=== PATIENT | male | born 1955 | race Caucasian/White ===

== ENCOUNTER 2016-08-24 10:23 | Inpatient (IN) | payer OTHER ==
[~2016-08-24] VITALS: Ht 185.4 cm; Wt 86.2 kg
--- NOTE | 2016-08-24 10:25 | NUR ---
PT HERE WITH AFIB STATES HE HAS HX OF SAME. PT STATES THIS BEGAN OVER NIGHT AND THINKS HE WAS IN A-FLUTTER FOR THE PAST FEW DAYS. PT SENT IN BY DR. ALVAREZ. PT DENIES CHEST PAIN
--- NOTE | 2016-08-24 10:27 | NUR ---
HR 144 A-FIB
--- NOTE | 2016-08-24 10:40 | NUR ---
SVT ON MONITOR,
--- NOTE | 2016-08-24 10:41 | NUR ---
ALERT, DENIES CHEST PAIN, DIZZINESS OR SOB.
[2016-08-24] MEDS ORDERED: ASPIRIN81 M4 PO (10:56)
--- NOTE | 2016-08-24 11:02 | ED CARDIAC/CP/PALPITATIONS ---
History of Present Illness General Chief Complaint: General Adult Stated Complaint: RAPID HEART RATE Vital Signs & Intake/Output Vital Signs & Intake/Output Vital Signs Date Time Temp Pulse Resp B/P Pulse O2 O2 Flow FiO2 Ox Delivery Rate 08/24 1120 140 114/77 08/24 1025 97.3 145 16 121/85 98 Room Air Allergies Coded Allergies: No Known Allergies (08/24/16) Reconcile Medications Aspirin (Aspirin*) 81 MG TAB.CHEW 1 TAB PO DAILY HEART HEALTH (Reported) Triage Note: PT HERE WITH AFIB STATES HE HAS HX OF SAME. PT STATES THIS BEGAN OVER NIGHT AND THINKS HE WAS IN A-FLUTTER FOR THE PAST FEW DAYS. PT SENT IN BY DR. ALVAREZ. PT DENIES CHEST PAIN Past History Travel History Traveled to [place] past 21 day No Medical History Cardiovascular: AFIB Influenza Vaccine: 03/05/10 Psychosocial History Who do you live with Spouse Services at Home None What is your primary language Portuguese Tobacco Use: Never used ETOH Use: denies use Illicit Drug Use: denies illicit drug use Progress Plan of Care: Orders Procedure Date/time Status PARTIAL THROMBOPLASTIN TIME 08/24 1043 Complete PROTHROMBIN TIME 08/24 1043 Complete TROPONIN LEVEL 08/24 1042 Active MAGNESIUM 08/24 1042 Active COMPREHENSIVE METABOLIC PANEL 08/24 1042 Active CHOLESTEROL 08/24 1042 Active CBC WITHOUT DIFFERENTIAL 08/24 1042 Complete EKG 08/24 1027 Active Laboratory Tests 08/24/16 1050: Sodium Pending, Potassium Pending, Chloride Pending, Carbon Dioxide Pending, Anion Gap Pending, BUN Pending, Creatinine Pending, BUN/Creatinine Ratio Pending , Glucose Pending, Calcium Pending, Magnesium Pending, Total Bilirubin Pending, AST Pending, ALT Pending, Alkaline Phosphatase Pending, Troponin I Pending, Total Protein Pending, Albumin Pending, Globulin Pending, Albumin/Globulin Ratio Pending, Cholesterol Pending, PT 13.2 H, INR 1.26 H, APTT 28, CBC w Diff NO MAN DIFF REQ, RBC 4.52 L, MCV 82.0, MCH 26.3 L, RDW 16.1 H, MPV 7.1 L, Gran % 81.9 H, Lymphocytes % 14.0 L, Monocytes % 3.1, Eosinophils % 0.6, Basophils % 0.4, Absolute Granulocytes 8.9 H, Absolute Lymphocytes 1.5, Absolute Monocytes 0.3, Absolute Eosinophils 0.1, Absolute Basophils 0, PUBS MCHC 32.1 L Initial ED EKG: normal intervals, no ST T wave changes, SUPRAVENTRICULAR TACHYCARDIA Departure Departure Condition: Stable Referrals: TORI LEVIN,SANDY NICK (PCP/Family) Departure Forms: Customer Survey General Discharge Information
[2016-08-24 11:12] LABS: ABSOLUTE BASOPHIL COUNT 0 /CUMM (0.0-0.2); ABSOLUTE EOSINOPHIL COUNT 0.1 /CUMM (0.0-0.7); ABSOLUTE GRANULOCYTE CT 8.9 /CUMM (1.4-6.5); ABSOLUTE LYMPH COUNT 1.5 /CUMM (1.2-3.4); ABSOLUTE MONOCYTE COUNT 0.3 /CUMM (0.10-0.60); BASOPHIL % 0.4 % (0.0-2.0); EOSINOPHIL % 0.6 % (0-5); GRANULOCYTE % 81.9 % (42.2-75.2); MEAN CORPUSCULAR HGB 26.3 PG (27.0-31.0); MEAN CORPUSCULAR HGB CONC 32.1 G/DL (33.0-37.0); MEAN PLATELET VOLUME 7.1 FL (7.4-10.4); PLATELET COUNT 398 /CUMM (130-400); RBC DISTRIBUTION WIDTH 16.1 % (11.5-14.5); RED BLOOD CELL CT 4.52 /CUMM (4.70-6.10); WHITE BLOOD CELL COUNT 10.9 /CUMM (4.8-10.8)
[2016-08-24 11:21] LABS: PT 13.2 SEC (9.4-12.5); PTT 28 SEC (25-37)
--- NOTE | 2016-08-24 11:21 | RADIOLOGY REPORT ---
EXAMINATION: XR PORTABLE CHEST CLINICAL INFORMATION: Atrial fibrillation. COMPARISON: None TECHNIQUE: Portable AP view of the chest was obtained. FINDINGS: Cardiomediastinal silhouette is within normal limits. Small left-sided pleural effusion with possible associated atelectasis. Right lung is clear. Visualized bony thorax is intact. IMPRESSION: Small left pleural effusion with associated linear atelectasis.
--- NOTE | 2016-08-24 11:46 | NUR ---
NO CHANGE IN RHYTHM AFTER ADENOSINE. PT DOES NOT WANT ANY MORE MEDICATION, WANTS TO SEE A CARDILOGIST. DR. SERNA AWARE. DR. ALVAREZ CALLED.
--- NOTE | 2016-08-24 12:19 | NUR ---
DR. MUNOZ HERE TO EVALUATE.
--- NOTE | 2016-08-24 12:55 | NUR ---
CALL FOR A TRAY
--- NOTE | 2016-08-24 13:12 | ED CARDIAC/CP/PALPITATIONS ---
History of Present Illness General Chief Complaint: General Adult Stated Complaint: RAPID HEART RATE Source: patient, family, old records Exam Limitations: no limitations Vital Signs & Intake/Output Vital Signs & Intake/Output Vital Signs Date Time Temp Pulse Resp B/P Pulse O2 O2 Flow FiO2 Ox Delivery Rate 08/24 1311 97.1 145 20 160/73 97 Room Air 08/24 1145 144 18 114/78 99 Room Air 08/24 1120 140 114/77 08/24 1025 97.3 145 16 121/85 98 Room Air Allergies Coded Allergies: No Known Allergies (08/24/16) Reconcile Medications Aspirin (Aspirin*) 81 MG TAB.CHEW 1 TAB PO DAILY HEART HEALTH (Reported) Core Measure Meds Pre-Hospital aspirin Triage Note: PT HERE WITH AFIB STATES HE HAS HX OF SAME. PT STATES THIS BEGAN OVER NIGHT AND THINKS HE WAS IN A-FLUTTER FOR THE PAST FEW DAYS. PT SENT IN BY DR. ALVAREZ. PT DENIES CHEST PAIN Triage Nurses Notes Reviewed? yes Onset: 2 days Duration: day(s):, constant, continues in ED, getting worse Timing: recent history Quality/Severity: moderate Location: central Radiation: no radiation Activities at Onset: rest Prior Chest Pain/Card Workup: echocardiography, stress test Modifying Factors: Worsens With: exercise. Nitro Today/Relief: no nitro taken today Aspirin Today: 81 mg x 1, provided at home Associated Symptoms: weakness HPI: 2 days prior to admission patient complains of rapid heart rate worse with exertion progressive. He denies fever chills nausea vomiting diarrhea abdominal pain shortness of breath headache dysuria rash bleeding. Past History Travel History Traveled to [place] past 21 day No Medical History Any Pertinent Medical History? see below for history Cardiovascular: AFIB Influenza Vaccine: 03/05/10 Surgical History Surgical History: non-contributory Psychosocial History Who do you live with Spouse Services at Home None What is your primary language Tuvaluan Tobacco Use: Never used ETOH Use: denies use Illicit Drug Use: denies illicit drug use Family History Hx Contributory? No Review of Systems Review of Systems Constitutional: Reports: no symptoms. EENTM: Reports: no symptoms. Respiratory: Reports: no symptoms. Cardiovascular: Reports: see HPI, palpitations. GI: Reports: no symptoms. Genitourinary: Reports: no symptoms. Musculoskeletal: Reports: no symptoms. Skin: Reports: no symptoms. Neurological/Psychological: Reports: no symptoms. Hematologic/Endocrine: Reports: no symptoms. Immunologic/Allergic: Reports: no symptoms. All Other Systems: Reviewed and Negative Physical Exam Physical Exam General Appearance: well developed/nourished, alert, awake, anxious, mild distress Head: atraumatic, normal appearance Eyes: Bilateral: normal appearance, PERRL, EOMI. Ears, Nose, Throat: normal pharynx, normal ENT inspection, hearing grossly normal Neck: normal inspection, supple, full range of motion Respiratory: normal breath sounds, chest non-tender, no respiratory distress, quiet respiration, lungs clear Cardiovascular: normal peripheral pulses, tachycardia, norml femoral pulses equa Peripheral Pulses: 4+ carotid (R), 4+ carotid (L) Gastrointestinal: normal bowel sounds, soft, non-tender, no organomegaly Back: normal inspection, normal range of motion Extremities: normal inspection, normal capillary refill, normal range of motion, no edema Neurologic/Psych: no motor/sensory deficits, awake, alert, oriented x 3, normal gait, normal mood/affect Reflexes: 2+: bicep (R), bicep (L). Skin: intact, normal color, warm/dry Lymphatic: no anterior cervical makayla Core Measures ACS in differential dx? Yes ASA ordered for poss ACS? taken at home Severe Sepsis Present: No Septic Shock Present: No Progress Differential Diagnosis: AMI, atrial fibrillation, hyperkalemia, hyperthyroid Plan of Care: Orders Procedure Date/time Status Regular Diet 08/24 L Active Patient Data 08/24 1311 Active OXYGEN SETUP (GEN) 08/24 1247 Active Saline Lock 08/24 1247 Active Admit to inpatient 08/24 1247 Active Vital Signs 08/24 1247 Active Activity/Ambulation 08/24 1247 Active Code Status 08/24 1247 Active PARTIAL THROMBOPLASTIN TIME 08/24 1043 Complete PROTHROMBIN TIME 08/24 1043 Complete TROPONIN LEVEL 08/24 1042 Complete MAGNESIUM 08/24 1042 Complete COMPREHENSIVE METABOLIC PANEL 08/24 1042 Complete CHOLESTEROL 08/24 1042 Complete CBC WITHOUT DIFFERENTIAL 08/24 1042 Complete EKG 08/24 1027 Active Current Medications Sig/Shante Start time Last Medication Dose Stop Time Status Admin Heparin Sodium 25,000 UNIT Q24H 08/24 1300 UNVr (Porcine) (Heparin) Sodium Chloride 500 ML Laboratory Tests 08/24/16 1050: Anion Gap 8, Estimated GFR > 60, BUN/Creatinine Ratio 30.0 H, Glucose 89, Calcium 8.6, Magnesium 1.7, Total Bilirubin 0.8, AST 17, ALT 34, Alkaline Phosphatase 60, Troponin I < 0.01, Total Protein 6.2 L, Albumin 2.9 L, Globulin 3.3, Albumin/Globulin Ratio 0.9 L, Cholesterol 138, PT 13.2 H, INR 1.26 H, APTT 28, CBC w Diff NO MAN DIFF REQ, RBC 4.52 L, MCV 82.0, MCH 26.3 L , RDW 16.1 H, MPV 7.1 L, Gran % 81.9 H, Lymphocytes % 14.0 L, Monocytes % 3.1, Eosinophils % 0.6, Basophils % 0.4, Absolute Granulocytes 8.9 H, Absolute Lymphocytes 1.5, Absolute Monocytes 0.3, Absolute Eosinophils 0.1, Absolute Basophils 0, PUBS MCHC 32.1 L Diagnostic Imaging: Viewed by Me: Radiology Read. Discussed w/RAD: Radiology Read. CXR Impression: no acute abnormality Initial ED EKG: normal axis, normal intervals, normal p-waves, normal QRS complex, rate (tachycardia) Prior EKG: changed Rhythm Strip: atrial fibrillation Comments: Initial EKG demonstrated SVT adenosine 6 mg administered with decrease in heart rate to mid 90s with return to 120s. 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 Rhythm strip now demonstrating atrial fibrillation flutter 90-120. Departure Departure Disposition: STILL A PATIENT Condition: Stable Clinical Impression Primary Impression: Atrial fibrillation with rapid ventricular response Referrals: TORI LEVIN,SANDY NICK (PCP/Family) Departure Forms: Customer Survey General Discharge Information Admission Note Spoke With: ALEXANDER LEVIN,Lyudmila ADKINS Documentation of Exam: Documentation of any treatments & extenuating circumstances including Concerns Regarding Discharge (functional status, medication knowledge or non-compliance, living conditions, etc.) that warrant an admission rather than observation: Cardiac monitoring serial lab exam serial EKG IV heparin IV Cardizem medication adjustment cardiology evaluation continuing care discharge planning Critical Care Note Critical Care Note Critical Care Time: 30-74 min (35)
--- NOTE | 2016-08-24 13:12 | History & Physical ---
RICKIE IVORY MD 08/24/16 1312: General Information and HPI Source of Information: patient, old records Exam Limitations: no limitations History of Present Illness: Patient is a 54-year-old male with significant past medical history of Lone atrial fibrillation ( since 2008), cardioverted twice into sinus rhythm,was on only on Aspirin (81mg) sent to emergency department by Dr. Glez due to AF. According to the patient, he started feeling tachycardia since last 48 -72 hours ,rate was not high.yesterday night he thinks is changed into atrial flutter. In the morning, when he checked on the monitor, it was more than 150. He was also feeling shortness of breath. He talked to Dr. Alvarez and he suggested him to come to [facility]. He claims that he was in normal sinus rhythm,since 2010 and was on baby aspirin. He denies chest pain, headache, dizziness, nausea, vomiting, recent infection, recent examination, anxiety. Other past medical history - right inguinal hernia repaired, umbilical hernia repairs, left knee arthroscopy, endovenous laser ablation of varicose vein. 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 Allergies/Medications Allergies: Coded Allergies: No Known Allergies (08/24/16) Home Med list Apixaban (Eliquis) 5 MG TABLET 5 MG PO BID ATRIAL FIBRILLATION Past History Travel History Traveled to [place] past 21 day No Medical History Cardiovascular: AFIB Influenza Vaccine: 03/05/10 Surgical History Surgical History: arthroscopy, hernia repair-inguinal, hernia repair-umbilical Past Family/Social History Psychosocial History Services at Home: None ETOH Use: denies use Illicit Drug Use: denies illicit drug use Functional Ability ADLs Independent: dressing, eating, toileting, bathing. Ambulation: independent Review of Systems Review of Systems Constitutional: Denies: no symptoms, chills, diaphoresis, fever, malaise, weakness, unexplained weight loss. EENTM: Denies: no symptoms. Cardiovascular: Denies: no symptoms, chest pain, edema, orthopena, palpitations, peripheral edema, syncope. Respiratory: Reports: short of breath. Denies: no symptoms, cough, hemoptysis, orthopnea, sputum production, stridor, wheezing. GI: Denies: no symptoms. Genitourinary: Denies: no symptoms. Musculoskeletal: Denies: no symptoms. Neurological/Psychological: Denies: no symptoms. Hematologic/Endocrine: Denies: no symptoms. Immunologic/Allergic: Denies: no symptoms. Exam & Diagnostic Data Last 24 Hrs of Vital Signs/I&O Vital Signs Date Time Temp Pulse Resp B/P Pulse O2 O2 Flow FiO2 Ox Delivery Rate 08/24 1426 98.9 146 18 90/70 100 08/24 1311 97.1 145 20 160/73 97 Room Air 08/24 1145 144 18 114/78 99 Room Air 08/24 1120 140 114/77 08/24 1025 97.3 145 16 121/85 98 Room Air Intake & Output 08/24 1600 08/24 0800 08/24 0000 Intake Total 510 Output Total Balance 510 Intake, IV 510 Patient 86.183 kg Weight Physical Exam General Appearance Alert, Oriented X3, Cooperative, No Acute Distress Skin No Rashes, No Breakdown Cardiovascular irregularly irregular with murmur Lungs Clear to Auscultation, Normal Air Movement Abdomen Soft, No Tenderness Neurological Normal Gait, Normal Speech Extremities No Clubbing, No Cyanosis, nonpitting edema using compression stockings Vascular Normal Pulses, Pulses Symmetrical Last 24 Hrs of Labs/Ray: Laboratory Tests 08/24/16 1050: Anion Gap 8, Estimated GFR > 60, BUN/Creatinine Ratio 30.0 H, Glucose 89, Calcium 8.6, Magnesium 1.7, Total Bilirubin 0.8, AST 17, ALT 34, Alkaline Phosphatase 60, Troponin I < 0.01, Total Protein 6.2 L, Albumin 2.9 L, Globulin 3.3, Albumin/Globulin Ratio 0.9 L, Cholesterol 138, PT 13.2 H, INR 1.26 H, APTT 28, CBC w Diff NO MAN DIFF REQ, RBC 4.52 L, MCV 82.0, MCH 26.3 L , RDW 16.1 H, MPV 7.1 L, Gran % 81.9 H, Lymphocytes % 14.0 L, Monocytes % 3.1, Eosinophils % 0.6, Basophils % 0.4, Absolute Granulocytes 8.9 H, Absolute Lymphocytes 1.5, Absolute Monocytes 0.3, Absolute Eosinophils 0.1, Absolute Basophils 0, PUBS MCHC 32.1 L Diagnostic Data EKG Results Atrial flutter, but does 2:[address]-T wave changes. CXR Results Small left pleural effusion with associated linear atelectasis. Assessment/Plan Assessment: Patient is a 54-year-old male with significant past medical history of Lone atrial fibrillation ( since 2008), cardioverted twice into sinus rhythm,was on only on Aspirin (81mg) sent to emergency department by Dr. Glez due to AF. Vital signs at the time of admission-temperature 97.3, pulse 145, respiratory rate 16, blood pressure 141/85, SPO2 98% on room air. Pertinent labs-Hb-11.9,Na -135, PT/INR-13.2/1.26 Chest x-ray shows-small left-sided pleural effusion with associated linear atelectasis. Plan - Paroxysmal atrial fibrillation - Patient has history of lone atrial fibrillation since 2008. He had electrocardioversion followed by normal sinus rhythm. Since 2010, he has not had any episodes. Echocardiogram in the past showed borderline LVH,LVEF >60%(2010). He was on baby aspirin. Since 08/22/2016, he started having new episode of palpitation, which is persistent with associated shortness of breath. He was admitted in the [facility] ED, and was given IV adenosine 6mg and 12mg. Af is not converted, so it was decided that we will start patient on IV heparin drip and Cardizem drip. We will keep him nothing by mouth for possible electrical cardioversion on 08/24/2016. * We will monitor in the telemetry floor * Heparin drip as per protocol * Cardizem drip 125mg/100cc at 5 mL per hour till tmr. * Keep nothing by mouth after midnight for possible JOSE/electrical cardioversion on 08/24/2016 * We will follow echocardiogram to rule out any clots * Strict intake output charting * Vitals every shift As Ranked By This Provider Problem List: 1. Atrial fibrillation with rapid ventricular response Core Measures/Miscellaneous Acute Coronary Syndrome ACS Diagnosis: No Cerebrovascular Accident CVA/TIA Diagnosis: No Congestive Heart Failure CHF Diagnosis: No Venous Thromboembolism VTE Risk Factors: Age > 40, Varicose veins No [facility] VTE prophylaxis d/t: No contraindications No VTE Pharm Prophylaxis d/t: No contraindications VTE Diagnosis: No VTE Type: NONE VTE Confirmed by (Test): NONE Severe Sepsis Severe Sepsis Present: No Septic Shock Septic Shock Present: No Miscellaneous Documentation Attending Case Discussed With: KIMANI ALVAREZ MD Primary Care Physician: SANDY VALLE MD Patient sees these Specialists Dr alvarez Level of Patient Care: Telemetry JOYCELYN ROJAS 08/24/16 1612: Resident Review Statement Other Findings: 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 Alvarez. He states that on monday he noticed his HR was irregular, which was associated with some dyspnea and fatigue. He is on low dose ASA as his [id number]- VASc Score is 0. He previously had been treated with amiodarone, dronedarone, and propafenone however he had not tolerated them and had multiple episodes of palpitations. He states that he has not had an feeling of palpitations or fibrillation prior to this episode for many years. For his prior episodes of atrial fibrillation, he was electrically cardioverted twice. At the time of the interview he states he has no acute complaints including dyspnea or palpitations. He denies chest pain, jaw pain, lightheadedness or dizziness. He denies any change in his vision or hearing. He denies any abdominal pain, n/v or change in his bowel habits. He denies any recent infection. He denies alcohol use prior to the tachycardia or recently. He denies any trauma or emotional shock. He states he has had multiple previous echocardiograms, most recently within the last year with at Dr. Quick [facility] that showed no structural abnormalities. Previous echo in 2010 showed EF of 60% with some mild LVH. In the ED, vitals on admission revealed T 97.3, HR 145, RR 16, BP 121/85, saturating 98% on RA. EKG on admission showed a tachycardic tracing and appeared to be SVT, however after admininstration of 6mg of adenosine, his rate went down to the 90s, and an underlying rhythm of atrial fibrillation vs flutter was noted by the ED staff. Unfortunately, this was not recorded on telemetry monitoring/rhythm strip. Physical exam was benign except for CVS exam: tachycardic on austultation with a 2/6 systolic flow murmur in all 4 areas w/o radiation. Lungs were CTA BL and no JVD or LE edema was noted. He is currently on a cardizem drip @5mg/hour and is being anticoagulated with IV heparin. Problem list/Assessment and plan Atrial fibrillation with RVR * -admit to telemetry for cardiac monitoring and continue IV cardizem drip. * -Continue heparin per general AC pathway with a goal PTT 2x the upper limit of normal * -Guiac all stools * -1st set of trop -ve, we will get 1 more at 5pm as well as an EKG to rule him out * -We will also get a TSH level to evaluate for hyperthyroidism. * -Cardio consult placed and appreciated. * -TTE pending. * -If he converts on his own with cardizem, please get a confirmatory EKG * -If he does not, plan for JOSE with possible cardioversion tomorrow morning. NPO @ midnight order in. * -It should be noted that he was previous tried on amiodarone, dronedarone and propafenone. He didnt tolerate the propafenone, but ? might be able to tolerate another class 1c antiarrhythmic medication such as flecainide or moricizine. 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
--- NOTE | 2016-08-24 13:29 | NUR ---
CARDIZEM DRIP STARTED AT 5 MG IV.
--- NOTE | 2016-08-24 13:50 | NUR ---
PT HAS BED ASSIGNMENT 174-2. RN NOTIFIED.
--- NOTE | 2016-08-24 13:53 | NUR ---
HEPARIN DRIP STARTED AT 20.6 UNITS PER HOUR (.45 NS WITH 25,000 UNITS HEPARIN) AFTER 4,000 UNIT BOLUS.
--- NOTE | 2016-08-24 14:10 | Cons- Cardiology ---
General Information and HPI Consulting Request Date of Consult: 08/24/16 Requested By: KIMANI ALVAREZ MD Reason for Consult: Atrial fibrillation / flutter Source of Information: patient, family History of Present Illness: 60 year old male with history of PAF and 2 prior cardioversions who has maintained NSR with the exception of a few episodes of non sustained palpitations, for several years. Here today in the ER after being sent in by Dr Alvarez for palpitations that have been present for 36 - 48 hours. In the ER the patient was noted to be in atrial fluitter. NO other CV symptoms Allergies/Medications Allergies: Coded Allergies: No Known Allergies (08/24/16) Home Med List: Aspirin (Aspirin*) 81 MG TAB.CHEW 1 TAB PO DAILY HEART HEALTH (Reported) Current Medications: Current Medications Sig/Shante Start time Last Medication Dose Route Stop Time Status Admin Acetaminophen 650 MG Q6P PRN 08/24 1415 UNVr PO Acetaminophen 1,000 MG Q6P PRN 08/24 1415 UNVr IV Adenosine 6 MG ONCE ONE 08/24 1100 DC 08/24 IV 08/24 1101 1120 Adenosine 0 .STK-MED ONE 08/24 1054 DC IV Adenosine 0 .STK-MED ONE 08/24 1054 DC IV Aspirin 81 MG DAILY 08/25 1000 UNVr PO Diltiazem HCl 0 .STK-MED ONE 08/24 1315 DC IV Diltiazem HCl 125 MG Q24H 08/24 1300 AC 08/24 Sodium Chloride 100 ML IV 1328 Heparin Sodium 0 .STK-MED ONE 08/24 1330 DC (Porcine) .ROUTE Heparin Sodium 4,000 UNIT ONCE ONE 08/24 1300 DC 08/24 (Porcine) IV 08/24 1301 1349 Heparin Sodium 25,000 UNIT Q24H 08/24 1300 AC 08/24 (Porcine) IV 1349 Sodium Chloride 500 ML Oxycodone/ 1 TAB Q6P PRN 08/24 1415 UNVr Acetaminophen PO Past History Travel History Traveled to [place] past 21 day No Medical History Cardiovascular: AFIB Surgical History Surgical History: non-contributory Psychosocial History Services at Home: None ETOH Use: denies use Illicit Drug Use: denies illicit drug use Exam & Diagnostic Data Vital Signs and I&O Vital Signs Date Time Temp Pulse Resp B/P Pulse O2 O2 Flow FiO2 Ox Delivery Rate 08/24 1311 97.1 145 20 160/73 97 Room Air 08/24 1145 144 18 114/78 99 Room Air 08/24 1120 140 114/77 08/24 1025 97.3 145 16 121/85 98 Room Air Intake & Output 08/24 1600 08/24 0800 08/24 0000 08/23 1600 08/23 0800 08/23 0000 Intake Total 10 Output Total Balance 10 Intake, IV 10 Patient 190 lb Weight Physical Exam: General Appearance Alert, Oriented X3, Cooperative, No Acute Distress Skin Normal Cardiovascular irregularly irregular with 1-2/6 systolic murmur Lungs Clear to Auscultation, Normal Air Movement Abdomen Soft, No Tenderness Neurological Normal Extremities No Clubbing, No Cyanosis, nonpitting edema using compression stockings Vascular Normal Pulses, Pulses Symmetrical Labs/Ray Results: Laboratory Tests 08/24 1050 Chemistry Sodium (137 - 145 mmol/L) 135 L Potassium (3.5 - 5.1 mmol/L) 4.7 Chloride (98 - 107 mmol/L) 103 Carbon Dioxide (22 - 30 mmol/L) 25 Anion Gap (5 - 16) 8 BUN (9 - 20 mg/dL) 21 H Creatinine (0.7 - 1.2 mg/dL) 0.7 Estimated GFR (>60 ml/min) > 60 BUN/Creatinine Ratio (7 - 25 %) 30.0 H Glucose (65 - 99 mg/dL) 89 Calcium (8.4 - 10.2 mg/dL) 8.6 Magnesium (1.6 - 2.3 mg/dL) 1.7 Total Bilirubin (0.2 - 1.3 mg/dL) 0.8 AST (17 - 59 U/L) 17 ALT (21 - 72 U/L) 34 Alkaline Phosphatase (< 127 U/L) 60 Troponin I (<0.11 ng/ml) < 0.01 Total Protein (6.3 - 8.2 g/dL) 6.2 L Albumin (3.5 - 5.0 g/dL) 2.9 L Globulin (1.9 - 4.2 gm/dL) 3.3 Albumin/Globulin Ratio (1.1 - 2.2 %) 0.9 L Cholesterol (< 200 MG/DL) 138 Coagulation PT (9.4 - 12.5 SEC) 13.2 H INR (0.90 - 1.17) 1.26 H APTT (25 - 37 SEC) 28 Hematology CBC w Diff NO MAN DIFF REQ WBC (4.8 - 10.8 /CUMM) 10.9 H RBC (4.70 - 6.10 /CUMM) 4.52 L Hgb (14.0 - 18.0 G/DL) 11.9 L Hct (42 - 52 %) 37.0 L MCV (80.0 - 94.0 FL) 82.0 MCH (27.0 - 31.0 PG) 26.3 L RDW (11.5 - 14.5 %) 16.1 H Plt Count (130 - 400 /CUMM) 398 MPV (7.4 - 10.4 FL) 7.1 L Gran % (42.2 - 75.2 %) 81.9 H Lymphocytes % (20.5 - 51.1 %) 14.0 L Monocytes % (1.7 - 9.3 %) 3.1 Eosinophils % (0 - 5 %) 0.6 Basophils % (0.0 - 2.0 %) 0.4 Absolute Granulocytes (1.4 - 6.5 /CUMM) 8.9 H Absolute Lymphocytes (1.2 - 3.4 /CUMM) 1.5 Absolute Monocytes (0.10 - 0.60 /CUMM) 0.3 Absolute Eosinophils (0.0 - 0.7 /CUMM) 0.1 Absolute Basophils (0.0 - 0.2 /CUMM) 0 PUBS MCHC (33.0 - 37.0 G/DL) 32.1 L Diagnostic Data EKG Results Atrial flutter with 2:1 conduction and NSSTTWCs. Assessment/Plan Assessment/Plan Assessment: 1. Atrial fibrillation / flutter of recent onset - By history, the patient has known PAF with no significant sustained episodes but recurrence now which may have started up to 48 hours ago. Sent to the ER by Dr. Alvarez this AM. In the ER found to be in atrial flutter and initially given adenosine. At the moment doing OK but with fluctuating rate between 80-140/ min. Otherwise doing well with no symptoms. Recommendations: - Discussed with the patient, his and Dr Alvarez. - Start IV cardizem at 5 mg / hr with NO bolus for now to optimize rate control. - IV heparin anticoagulation - Full lab evaluation. - Baseline echocardiogram to rule out interval change. - NPO after midnight tonite for possible JOSE / Cardioversion tomorrow if needed. - Final decision about oral medication tomorrow. Whether the patient converts on his own or requires cardioversion, he should be anticoagulated for at least 2 -4 weeks post reversion to NSR. - If her reverts on his own overnight, continue IV meds pending Dr. Quick decision about oral medications in the AM. Consult Acknowledgment - Thank you for your consult request.
--- NOTE | 2016-08-24 14:26 | NUR ---
MANUAL BLOOD PRESSURE AT THIS TIME 90/70
--- NOTE | 2016-08-24 14:48 | NUR ---
DR. CHO AND DR. HIRSCH AWARE OF BP (90/70) NS BOLUS INFUSING.
--- NOTE | 2016-08-24 15:49 | NUR ---
DR. ROJAS NOTIFIED OF PERSISTANT ELEVATED HEART RATE. (138-144) CARDIZEM INCREASED TO 7.5 MG PER HOUR.
--- NOTE | 2016-08-24 16:08 | NUR ---
TO TELEMETRY (ROOM 174) ON [employer] WITH JACK [employer].
[2016-08-24 16:25] VITALS: BP 102/68
[2016-08-24 21:52] LABS: PTT 31 SEC (25-37)
[2016-08-24 23:57] VITALS: BP 90/50
[2016-08-25 04:49] LABS: PTT 47 SEC (25-37)
[2016-08-25 08:15] VITALS: BP 102/62
--- NOTE | 2016-08-25 08:16 | PN- Housestaff ---
Subjective Follow-up For: Lone Atrial fibrillation Complaints: no complaints Tele-Events Since Last Visit: Atrial fibrillation with heart rate between 90-110 Subjective: A she is seen and examined at the bedside. He was not having any active complain. He is planned to go to JOSE and electrical cardioversion at 9 o'clock today. He denies of any chest pain, shortness of breath, dyspnea, blurry vision. Review of Systems Constitutional: Denies: no symptoms. Comments: Patient denies for any active complaints. Objective Last 24 Hrs of Vital Signs/I&O Temp -98.9, P-61, RR-13, BP-102/62, SpO2 -96% Physical Exam General Appearance: Alert, Oriented X3, Cooperative, No Acute Distress Cardiovascular: irregularly irregular with murmur Lungs: Clear to Auscultation, Normal Air Movement Abdomen: Soft, No Tenderness Extremities: No Clubbing, No Cyanosis, No Edema Assessment/Plan Assessment: Patient is a 54-year-old male with significant past medical history of Lone atrial fibrillation ( since 2008), cardioverted twice into sinus rhythm,was on only on Aspirin (81mg) sent to emergency department by Dr. Glez due to AF. Plan - Lone Atrial fibrillation * Patient is planned for JOSE and electrical cardioversion at 9 o'clock in the morning * We will continue Cardizem drip and heparin before it. Afternoon - * JOSE did not show any clot and electrical cardioversion was done successfully and atrial fibrillation converted to normal sinus rhythm * We stopped Cardizem and heparin drip * We started patient on tablet Eliquis 5 milligrams twice a day * We advised to continue Eliquis for next 4-6 weeks. * Patient remained stable after the procedure without any chest pain, hypertension, shortness of breath. * We discharged with advise to follow-up with Dr. Ramirez within a week of discharge Problem List: 1. Lone atrial fibrillation Pain Ratin Pain Location: not applicable Pain Goal: Remain pain free Pain Plan: mild, avoid NSAIDs Tomorrow's Labs & Rationales: None - discharged DVT/Prophylaxis: mechanical, pharmacological
--- NOTE | 2016-08-25 12:00 | PN- Cardiology ---
Subjective Subjective: The patient remained in atrial flutter overnight. JOSE and cardioversion were performed this morning with successful conversion to sinus rhythm. He is feeling well. No chest pain. No shortness of breath. No diaphoresis. No palpitations. Objective Vital Signs and I&Os Vital Signs Date Time Temp Pulse Resp B/P Pulse O2 O2 Flow FiO2 Ox Delivery Rate 08/25 0815 98.9 61 18 102/62 96 Room Air 08/25 0800 Room Air 08/24 2357 98.0 74 18 90/50 97 Room Air 08/24 1625 98.3 133 18 102/68 97 Room Air 08/24 1536 138 18 102/61 08/24 1426 98.9 146 18 90/70 100 08/24 1311 97.1 145 20 160/73 97 Room Air Intake & Output 08/25 1600 08/25 0800 08/25 0000 08/24 1600 08/24 0800 08/24 0000 Intake Total 280 464.8 510 Output Total 450 350 Balance -170 114.8 510 Intake, IV 280 224.8 510 Intake, Oral 240 Output, Urine 450 350 Patient 190 lb Weight Physical Exam: Gen: The patient is in no acute distress HEENT: Normal nose, ears, and oropharynx. Pupils equal bilaterally. Conjunctiva normal. Neck: Supple with no JVD, no masses, and no thyromegaly Lungs: Clear to auscultation with normal respiratory effort Heart: Irregularly irregular, S1, S2, 1/6 systolic murmur. No peripheral edema, 2+ pulses in the lower extremities bilaterally Abdomen: Soft, nontender, no masses. No hepatomegaly. No splenomegaly Extremities: No clubbing or cyanosis. Normal muscle strength in the upper and lower extremities Skin: Normal skin turgor with no skin ulcers or lesions noted. Neuro: Cranial nerves intact. Sensation intact Psych: Alert and oriented 3 with appropriate affect Current Medications: Current Medications Sig/Shante Start time Last Medication Dose Route Stop Time Status Admin Acetaminophen 650 MG Q6P PRN 08/24 1415 AC PO Acetaminophen 1,000 MG Q6P PRN 08/24 1415 AC IV Aspirin 81 MG DAILY 08/25 1000 AC PO Diltiazem HCl 0 .STK-MED ONE 08/24 1315 DC IV Diltiazem HCl 125 MG Q24H 08/24 1300 AC 08/25 Sodium Chloride 100 ML IV 0729 Heparin Sodium 2,586 UNIT ONCE ONE 08/25 0500 DC 08/25 (Porcine) IV 08/25 0501 0500 Heparin Sodium 5,172 UNIT ONCE ONE 08/24 2230 DC 08/24 (Porcine) IV 08/24 2230 2230 Heparin Sodium 0 .STK-MED ONE 08/24 1330 DC (Porcine) .ROUTE Heparin Sodium 4,000 UNIT ONCE ONE 08/24 1300 DC 08/24 (Porcine) IV 08/24 1301 1349 Heparin Sodium 25,000 UNIT Q24H 08/24 1300 AC 08/25 (Porcine) IV 0850 Sodium Chloride 500 ML Oxycodone/ 1 TAB Q6P PRN 08/24 1415 AC Acetaminophen PO Patient Medication 1 ED ONE ONE 08/25 1145 DC Teaching ED 08/25 1146 Ramelteon 8 MG ONCE ONE 08/24 2230 DC 08/24 PO 08/24 2230 2228 Sodium Chloride 500 ML BOLUS ONE 08/24 1445 DC 08/24 IV 08/24 1544 1446 Results Last 48 Hrs of Labs/Mics: Laboratory Tests 08/25/16 0430: APTT 47 H 08/24/16 2000: APTT 31 08/24/16 1050: Anion Gap 8, Estimated GFR > 60, BUN/Creatinine Ratio 30.0 H, Glucose 89, Calcium 8.6, Magnesium 1.7, Total Bilirubin 0.8, AST 17, ALT 34, Alkaline Phosphatase 60, Troponin I < 0.01, Total Protein 6.2 L, Albumin 2.9 L, Globulin 3.3, Albumin/Globulin Ratio 0.9 L, Cholesterol 138, PT 13.2 H, INR 1.26 H, APTT 28, CBC w Diff NO MAN DIFF REQ, RBC 4.52 L, MCV 82.0, MCH 26.3 L , RDW 16.1 H, MPV 7.1 L, Gran % 81.9 H, Lymphocytes % 14.0 L, Monocytes % 3.1, Eosinophils % 0.6, Basophils % 0.4, Absolute Granulocytes 8.9 H, Absolute Lymphocytes 1.5, Absolute Monocytes 0.3, Absolute Eosinophils 0.1, Absolute Basophils 0, PUBS MCHC 32.1 L Recent Imaging Studies: Chest x-ray: Small left pleural effusion with associated linear atelectasis. Assessment/Plan Assessment/Plan Assessment: 1. History of paroxysmal atrial fibrillation 2. Atrial flutter, status post successful cardioversion, now in normal sinus rhythm Plan: * Discontinue diltiazem * Start Eliquis 5 mg twice a day BID. His will be continued for one month status post cardioversion * Discontinue aspirin while on Eliquis * Discontinue IV heparin when first dose of Eliquis is given * Discharged to home in the afternoon if stable. * The patient will be referred to an electophysiologist as an outpatient to discuss possible ablation of the atrial fibrillation and atrial flutter. Continue telemetry? Yes
--- NOTE | 2016-08-25 12:48 | Discharge Summary ---
Visit Information Visit Dates Admission Date: 08/24/16 Discharge Date: 08/25/16 Hospital Course Course Attending Physician: KIMANI ALVAREZ MD Primary Care Physician: TORI LEVIN,SANDY NICK Hospital Course: Patient is a 54-year-old male with significant past medical history of Lone atrial fibrillation (since 2008), cardioverted twice into sinus rhythm,was on only on Aspirin (81mg) sent to emergency department by Dr. Glez due to AF. Vital signs at the time of admission-temperature 97.3, pulse 145, respiratory rate 16, blood pressure 141/85, SPO2 98% on room air. Pertinent labs-Hb-11.9,Na -135, PT/INR-13.2/1.26 Chest x-ray shows-small left-sided pleural effusion with associated linear atelectasis. EKG Results - Atrial flutter, but does 2:[address]-T wave changes. Atrial fibrillation / flutter of recent onset - Since 2010, he has not had any episodes. Echocardiogram in the past showed borderline LVH,LVEF >60%(2010). He was on baby aspirin. Since 08/22/2016, he started having new episode of palpitation, which was persistent and associated with shortness of breath. He was admitted in the [place] ED, and was given IV adenosine 6mg and 12mg. Atrial fibrillation was not reverted to sinus rhythm, so he was admitted into telemetry floor and we gave IV heparin drip and Cardizem drip. We observed the patient overnight, but he remained in atrial fibrillation.We keept him NPO for JOSE, followed by electrical cardioversion on .JOSE did not show any clot and electrical cardioversion was done successfully and atrial fibrillation converted to normal sinus rhythm.We started patient on tab Eliquis 5 mgs BID. Patient remained stable after the procedure without any chest pain, hypertension, shortness of breath. We stopped heparin and diltiazem drip. We discharged with advised to continue Eliquis for next 4-6 weeks and to follow-up with Dr. Ramirez within a week of discharge. Allergies: Coded Allergies: No Known Allergies (08/24/16) Disposition Summary Disposition Principal Diagnosis: Atrial flutter, status post successful cardioversion, in normal sinus rhythm Additional Diagnosis: History of paroxysmal atrial fibrillation Discharge Disposition: home or self care Discharge Instructions General Discharge Information Code Status: Full Code Patient's Diet: Heart healthy diet Patient's Activity: as tolerated Follow-Up Instructions/Appts: please follow up with Dr Alvarez with in a week of discharge. please continue tab Eliquis for next 4-6 weeks Medications at Discharge Discharge Medications: Stop taking the following medications: Aspirin (Aspirin*) 81 MG TAB.CHEW ORAL DAILY Start taking the following new medications: Apixaban (Eliquis) 5 MG TABLET 5 Milligram ORAL TWICE DAILY Qty = 60 No Refills Copies To: TORI LEVIN,SANDY NICK Attending Review Statement Documenting Attending: ANTONIO LEVIN,KIMANI
--- NOTE | 2016-08-25 13:03 | Patient Discharge Instructions ---
Discharge Instructions General Discharge Information You were seen/treated for: atrial fibrillation treated by medication and electrical cardioversion Special Instructions: please follow up with Dr Pak with in a week of discharge. You may need eliquis for a month. Diet Continue normal diet: No Recommended Diet: Heart Healthy Activity Full Activity/No Limits: No (as tolerated) Acute Coronary Syndrome Inclusion Criteria At DC or during hospital stay patient has or had the following: ACS DIAGNOSIS No Discharge Core Measures Meds if any: Prescribed or Continued at Discharge Meds if any: NOT Prescribed or Continued at Discharge Congestive Heart Failure Inclusion Criteria At DC or during hospital stay patient has or had the following: CHF DIAGNOSIS No Discharge Core Measures Meds if any: Prescribed or Continued at Discharge Meds if any: NOT Prescribed or Continued at Discharge Cerebrovascular accident Inclusion Criteria At DC or during hospital stay patient has or had the following: CVA/TIA Diagnosis No Discharge Core Measures Meds if any: Prescribed or Continued at Discharge Meds if any: NOT Prescribed or Continued at Discharge Venous thromboembolism Inclusion Criteria VTE Diagnosis No VTE Type NONE VTE Confirmed by (Test) NONE Discharge Core Measures - Per Current guidelines, there needs to be overlap - treatment for the first 5 days of Warfarin therapy. - If discharged on Warfarin prior to 5 days of - overlap therapy, the patient will need to be - assessed for post discharge needs including - *Post discharge parental anticoagulation - *Warfarin and/or parental anticoagulation education - *Follow up date to check INR post discharge At least 5 days overlap therapy as Inpatient No Meds if any: Prescribed or Continued at Discharge Warfarin No Note: Overlap Therapy is Warfarin and Anticoagulant Meds if any: NOT Prescribed or Continued at Discharge
[2016-08-25 13:04] LABS: PTT 43 SEC (25-37)
[2016-08-25 13:29] VITALS: BP 98/62
[2016-08-25] MEDS ORDERED: ELIQUIS5 M1 PO (13:32)
--- NOTE | 2016-08-25 14:34 | NUR ---
LATE ENTRY 1300 PT BACK TO FLOOR FROM [facility] ([facility]) PT A&OX3, SR ON THE MONITOR HR 80-105. NO C/O CP.
--- NOTE | 2016-08-26 09:38 | ECHOCARDIOGRAM REPORT ---
AILEEN DUENAS Age: 60 : Gender: M Exam Date: 08/25/2016 09:21 Exam Location: [address] Ht (in): 73 Wt (lb): 190 BSA: 2.11 BP: 112 / 70 Ordering Physician: LIAM ALVAREZ M Referring Physician: LIAM ALVAREZ MD Technologist: Moses Rogers [facility] Room Number: 182-1 Indications: AFIB/FLUTTER Rhythm: Atrial flutter Technical Quality: Good Medications Propofol Ease of Transducer Insertion No Difficulty Complications None. Technical Difficulty No difficulty FINDINGS Left Ventricle Normal size left ventricle. Normal left ventricular ejection fraction visually estimated at >60%. Normal left ventricular wall motion. Right Ventricle Normal right ventricular size and function. Right Atrium Normal right atrial size. Left Atrium Mild left atrial dilatation. LA Appendage Normal left atrial appendage. No thrombus seen IA Septum Normal interatrial septum. Mitral Valve Mild mitral annular calcification. Mild mitral regurgitation. Aortic Valve Structurally normal trileaflet aortic valve. Trace aortic regurgitation. Tricuspid Valve Structurally normal tricuspid valve. Pulmonic Valve Pulmonic valve not well visualized, grossly normal. Pericardium No pericardial effusion. Great Vessels Minimal atherosclerosis of the descending aorta. CONCLUSIONS Normal left ventricular ejection fraction visually estimated at > 60%. Normal left ventricular wall motion. Mild left atrial dilatation. Normal left atrial appendage. Mild mitral regurgitation. Trace aortic regurgitation. JOSE was followed by DC cardioversion, with successfult conversion to NSR with 50J x 1. Liam Alvarez M.D. (Electronically Signed) Final Date: 26 August 2016 09:37 MEASUREMENTS (Male / Female) Normal Values
== END 2016-08-25 15:57 | DRG 310 ==
LOC: ENRESERVTM → ENRESERVDT → ERH → ERHI 12:47 → 1NO 12:47
PROVIDERS: Emergency Medicine; ADMIT Internal Medicine Cardiovascular Disease
PROC: B246ZZ4 Ultrasonography of Right and Left Heart, Transesophageal (ICD-10-PCS; principal; 2016-08-25)
PROC: 5A2204Z Restoration of Cardiac Rhythm, Single (ICD-10-PCS; principal; 2016-08-25)
DX: I48.92 Unspecified atrial flutter (principal); I48.0 Paroxysmal atrial fibrillation
CPT/HCPCS: 1NP; 93005; 93010; 93325; 96361; 96374; 96375; J0131; J0153; J1644; J3490; J7040